=== PATIENT | female | born 1955 | race Hispanic/Latino ===

== ENCOUNTER 2018-03-31 08:14 | Outpatient (CLI) | payer OTHER ==
--- NOTE | 2018-03-31 12:39 | Ultrasound Report ---
ABDOMINAL ULTRASOUND: 03/31/18 08:14:00 CLINICAL: Flank pain. FINDINGS: High-resolution ultrasound demonstrates a normal size liver with normal contour. Mild diffuse increased echogenicity of the liver. No liver mass identified. Normal hepatic vasculature and inferior vena cava. The gallbladder is normally distended with no stones. The gallbladder wall measures 1.4 mm. Normal intrahepatic and extrahepatic bile ducts. The common bile duct measures 4.0 mm diameter. The pancreas is well imaged and normal Normal abdominal aorta. A normal spleen measures 10.3 x 4.6 x 3.7 cm. Normal kidneys with normal echogenicity and normal non-dilated renal collecting systems and ureters. The right kidney measures 10.1 x 4.7 x 4.1 cm. The left kidney measures 10.1 x 4.8 x 3.9 cm. No renal mass or calculus. No ascites or mass. IMPRESSION: Mild increased echogenicity of the liver suggestive of hepatic steatosis. The abdomen is otherwise normal.
--- NOTE | 2018-03-31 12:52 | Ultrasound Report ---
TRANSABDOMINAL AND TRANSVAGINAL PELVIC ULTRASOUND: 03/31/18 08:14:00 CLINICAL: Pelvic and perineal pain. FINDINGS: Transabdominal and transvaginal pelvic ultrasound demonstrated a small uterus measuring 6.9 x 2.7 x 3.8 cm. Normal uterine contour. A single 5 mm anterior intramural fibroid in uterine body.The endometrium is mildly thickened and measures 4.3 mm AP thickness. Ovaries are not identified.No adnexal mass. No free fluid. Normal urinary bladder. IMPRESSION: 1. A single tiny uterine fibroid. 2. No mass or explanation for pain.
== END 2018-03-31 08:15 | disposition home or self-care (01) ==
LOC: SPVWC 08:14
PROVIDERS: ATTEND Nurse Practitioner Family
DX: D25.1 Intramural leiomyoma of uterus (principal); R93.2 Abnormal findings on diagnostic imaging of liver and biliary tract; M19.90 Unspecified osteoarthritis, unspecified site
CPT/HCPCS: 76700; 76830; 76856

== ENCOUNTER 2021-06-06 13:09 | Outpatient (CLI) | payer MEDICARE ==
--- NOTE | 2021-06-07 09:35 | Mammography Report ---
DEXA BONE DENSITY SCAN INDICATION / CLINICAL INFORMATION: [facility] (CURRENT) USE OF AROMATASE INHIBITORS. 65 years Female COMPARISON: None available. LUMBAR SPINE, L1-L4: - Bone mineral density (BMD) = 1.364 g/cm2. - T-score = 2.9 - Z-score = 4.8 Change (%) since most recent prior (if available): None available. LEFT HIP, NECK : - Bone mineral density (BMD) = 0.652 g/cm2. - T-score = -1.8 - Z-score = -0.1 Change (%) since most recent prior (if available): None available. IMPRESSION: 1. WHO Classification: Osteopenia. Fracture Risk: Increased. Note: 10-Year Fracture Risk (FRAX) not reported. This DEXA unit lacks FRAX functionality. BMD Reporting Guidelines (ISCD, 2015) BMD Reporting in Postmenopausal Women and in Men Age 50 and Older - T-scores are preferred. - The WHO densitometric classification is applicable. BMD Reporting in Females Prior to Menopause and in Males Younger Than Age 50 - Z-scores, not T-scores, are preferred. This is particularly important in children. - A Z-score of -2.0 or lower is defined as below the expected range for age, and a Z-score above -2.0 is within the expected range for age. - Osteoporosis cannot be diagnosed in men under age 50 on the basis of BMD alone. - The WHO diagnostic criteria may be applied to women in the menopausal transition. http://www.iscd.org/official-positions/4800-doop-cccsgzkk-positions-adult/ Signer Name: Bob Najera MD Signed: 06/07/2021 9:30 AM Workstation Name: [id number]
== END 2021-06-06 13:10 | disposition home or self-care (01) ==
LOC: SPVWC 13:09
PROVIDERS: ATTEND Internal Medicine Hematology & Oncology
DX: C50.412 Malignant neoplasm of upper-outer quadrant of left female breast (principal); D72.829 Elevated white blood cell count, unspecified; M85.88 Other specified disorders of bone density and structure, other site; Z79.811 Long term (current) use of aromatase inhibitors
CPT/HCPCS: 77080